=== PATIENT | male | born 1955 | race Caucasian/White ===

== ENCOUNTER 2016-12-23 10:51 | Emergency (ER) | payer MEDICARE ==
[2016-12-23 11:15] VITALS: TEMP 98.8
[2016-12-23] MEDS ORDERED: IPRATROPIUM-ALBUTEROL 3 ML NEB INHALATION STA (11:19)
[2016-12-23] MEDS ORDERED: IBUPROFEN 600 MG TAB PO STA (11:20)
--- NOTE | 2016-12-23 11:23 | ED ---
URI HPI - General Chief Complaint: Upper Respiratory Infection Stated Complaint: flu type symptoms Time Seen by Provider: 12/23/16 11:16 Source: patient, RN notes reviewed Mode of arrival: ambulatory Limitations: no limitations - History of Present Illness Initial Comments: 61-year-old male presents to the emergency room chief complaint of cough. Patient states had a cough the past few days. Patient states he has felt feverish is never had a fever when he states that at home. Patient states that he has been having since approximately several looked at. Patient denies any health history. Patient agrees breath or chest pain. Patient states he has been very busy helping a friend the past week or so and feels as if he just worked himself out. Patient states that he was concerned so he thought that he should be evaluated. Patient states in the way here due to he did trip on the steps and landed onto his upper back he's having little bit of upper back pain since the fall. Patient denies any loss of bowel or bladder function or saddle anesthesia and radiation pain is mild achy worse to touch. Patient denies any recent shortness of breath, chest pain, abdominal pain, nausea vomiting, numbness or tingling, dysuria or hematuria, constipation or diarrhea, headaches or visual changes, or any other current symptoms. - Related Data Home Medications Medication Instructions Recorded Confirmed Atenolol [Tenormin] 50 mg PO DAILY 12/23/16 12/23/16 Omeprazole [PriLOSEC] 20 mg PO DAILY 12/23/16 12/23/16 buPROPion XL [Wellbutrin Xl] 150 mg PO DAILY 12/23/16 12/23/16 Previous Rx's Medication Instructions Recorded Oseltamivir [Tamiflu] 75 mg PO Q12HR #10 cap 12/23/16 Allergies Allergy/AdvReac Type Severity Reaction Status Date / Time No Known Allergies Allergy Verified 12/23/16 12:40 Review of Systems ROS Statement: Those systems with pertinent positive or pertinent negative responses have been documented in the HPI. ROS Other: All systems not noted in ROS Statement are negative. Past Medical History Past Medical History: No Reported History History of Any Multi-Drug Resistant Organisms: None Reported Past Surgical History: No Surgical Hx Reported Past Psychological History: No Psychological Hx Reported Smoking Status: Current every day smoker Past Alcohol Use History: None Reported Past Drug Use History: None Reported General Exam - General Exam Comments Initial Comments: General: The patient is awake and alert, in no distress, and does not appear acutely ill. Eye: Pupils are equal, round and reactive to light, extra-ocular movements are intact; there is normal conjunctiva bilaterally. No signs of icterus. Ears, nose, mouth and throat: There are moist mucous membranes and no oral lesions. Neck: The neck is supple, there is no tenderness. Cardiovascular: There is a regular rate and rhythm. No murmur, rub or gallop is appreciated. Respiratory: Lungs are clear to auscultation, respirations are non-labored, breath sounds are equal. No wheezes, stridor, rales, or rhonchi. Gastrointestinal: Soft, non-distended, non-tender abdomen without masses or organomegaly noted. There is no rebound or guarding present. No CVA tenderness. Bowel sounds are unremarkable. Back: There is no tenderness to palpation in the midline. There is no obvious deformity. No rashes noted. Musculoskeletal: Normal ROM, no tenderness, There is no pedal edema. There is no calf tenderness or swelling. Sensation intact. Pulses equal bilaterally 2+. Neurological: CN II-XII intact, There are no obvious motor or sensory deficits. Coordination appears grossly intact. Speech is normal. Skin: Skin is warm and dry and no rashes or lesions are noted. Psychiatric: Cooperative, appropriate mood & affect, normal judgment. Limitations: no limitations Course Vital Signs 12/23/16 12/23/16 12/23/16 11:11 11:45 11:56 Temperature 98.8 F Pulse Rate 60 60 68 Respiratory 18 Rate Blood Pressure 121/63 O2 Sat by Pulse 95 Oximetry Medical Decision Making - Medical Decision Making 61-year-old male presents emergency department with a chief complaint of cough as well as history of fall. At this time patient's x-rays are reviewed and negative. Patient is positive for the influenza. At this time we will start patient on Tamiflu since it's within 48 hours since his symptoms started. Discussed Motrin Tylenol for fever control. We discussed return parameters and follow-up. Patient stated he understood all questions were answered. He will be discharged. - Lab Data Lab Results 12/23/16 Range/Units 11:45 Influenza Type A RNA Detected A (Not Detectd) Influenza Type B (PCR) Not Detected (Not Detectd) - Radiology Data Radiology results: report reviewed, image reviewed Disposition Clinical Impression: Influenza A Disposition: HOME SELF-CARE Condition: Stable Instructions: Influenza (ED) Additional Instructions: Please use medication as discussed. Please follow up with family doctor if symptoms have not improved over the next two days. Please return to the emergency room if your symptoms increase or worsen or for any other concerns. Prescriptions: Oseltamivir [Tamiflu] 75 mg PO Q12HR #10 cap Referrals: Livia Peres MD [STAFF PHYSICIAN] - 1-2 days Time of Disposition: 12:57
[2016-12-23 11:57] VITALS: PULSE 68
--- NOTE | 2016-12-23 12:36 | XR ---
EXAMINATION TYPE: XR chest 2V, XR thoracic spine complete, 3 views DATE OF EXAM: 12/23/2016 12:30 PM COMPARISON: None HISTORY: 61-year-old male with cough, flulike symptoms, and back pain after fall on stairs. FINDINGS: CHEST: The cardiomediastinal silhouette, aorta, and pulmonary vasculature are within normal limits. Some str fahad atelectasis in the lower lungs. Otherwise, lungs and pleural spaces are clear. Thoracic spine: 12 rib-bearing thoracic vertebral bodies. All pedicles are visualized. There is mild endplate spondyl osis in the upper third thoracic spine. Vertebral body heights are preserved and alignment is maintai beck. Slightly limited visualization of upper most thoracic vertebral bodies due to overlying shoulder s. IMPRESSION: 1. Chest: No acute cardiopulmonary process and 2. Thoracic spine: No vertebral compression collapse or malalignment. Mild endplate spondylosis upper thoracic thoracic spine.
[2016-12-23 13:22] VITALS: BP 109/59; RESP 16
== END 2016-12-23 13:21 | disposition home or self-care (01) ==
LOC: EC 10:51
DX: J10.1 Influenza due to other identified influenza virus with other respiratory manifestations (principal); S29.9XXA Unspecified injury of thorax, initial encounter; W10.9XXA Fall (on) (from) unspecified stairs and steps, initial encounter; Z79.899 Other long term (current) drug therapy; F17.200 Nicotine dependence, unspecified, uncomplicated
CPT/HCPCS: 71020; 72072; 87502; 94640; 99284

== ENCOUNTER → 2023-11-21 | Outpatient (CLI) | payer MEDICARE | END | disposition home or self-care (01) | LOC: LABWHC1 09:55 | PROVIDERS: ATTEND Urology | DX: R97.20 Elevated prostate specific antigen [PSA] (principal) | CPT/HCPCS: 36415; 84153 ==

== ENCOUNTER → 2024-02-19 | Outpatient (CLI) | payer MEDICARE | END | disposition home or self-care (01) | LOC: LABWHC1 08:00 | PROVIDERS: ATTEND Urology | DX: R97.20 Elevated prostate specific antigen [PSA] (principal) | CPT/HCPCS: 36415; 84153 ==